=== PATIENT | male | born 1985 | race Caucasian/White ===

== ENCOUNTER 2021-02-04 07:26 | Emergency (ER) | payer OTHER ==
[2021-02-04 08:38] LABS: HEMOGLOBIN 15.6 gm/dl (14.0-17.5); RED BLOOD COUNT 4.97 M/UL (4.20-5.50); WHITE BLOOD COUNT 6.2 K/UL (4.5-11.0)
[2021-02-04 09:00] LABS: BUN/CREATININE RATIO 17 (0-10)
== END 2021-02-04 10:32 | disposition home or self-care (01) ==
LOC: ER1 07:26
PROVIDERS: Emergency Medicine
DX: R07.2 Precordial pain (principal); R42 Dizziness and giddiness; Z20.822 Contact with and (suspected) exposure to COVID-19
CPT/HCPCS: 0240U; 70450; 71045; 80053; 82550; 82553; 83874; 83880; 84484; 85025; 93005; 99285; J7030

== ENCOUNTER 2021-03-10 18:57 | Emergency (ER) | payer OTHER ==
[2021-03-10] MEDS ORDERED: LODINE CAP 300300 MG PO (20:29)
== END 2021-03-10 20:35 | disposition home or self-care (01) ==
LOC: ER1 18:57
DX: J32.9 Chronic sinusitis, unspecified (principal); I10 Essential (primary) hypertension; F17.290 Nicotine dependence, other tobacco product, uncomplicated
CPT/HCPCS: 99283

== ENCOUNTER 2021-04-27 00:47 | Emergency (ER) | payer OTHER ==
[~2021-04-27 00:47] MED LIST: LODINE CAP 300300 MG PO
[2021-04-27 02:13] LABS: RED BLOOD COUNT 5.06 M/UL (4.20-5.50); WHITE BLOOD COUNT 11.3 K/UL (4.5-11.0)
[2021-04-27 02:34] LABS: BUN/CREATININE RATIO 18 (0-10)
== END 2021-04-27 04:30 | disposition left against medical advice (07) ==
LOC: ER1 00:47
PROVIDERS: Emergency Medicine
DX: R07.89 Other chest pain (principal); I10 Essential (primary) hypertension; F17.200 Nicotine dependence, unspecified, uncomplicated
CPT/HCPCS: 71045; 80053; 82550; 82553; 83690; 83735; 83874; 84484; 85025; 85379; 93005; 96365; 99285; G0480; J7120

== ENCOUNTER 2021-05-27 12:34 | Emergency (ER) | payer OTHER ==
[2021-05-27 12:52] LABS: HEMOGLOBIN 14.5 gm/dl (14.0-17.5); RED BLOOD COUNT 4.6 M/UL (4.20-5.50); WHITE BLOOD COUNT 8.7 K/UL (4.5-11.0)
[2021-05-27 13:15] LABS: BUN/CREATININE RATIO 16 (0-10)
== END 2021-05-27 17:10 | disposition home or self-care (01) ==
LOC: ER1 12:34
PROVIDERS: Emergency Medicine
DX: R07.89 Other chest pain (principal); N28.9 Disorder of kidney and ureter, unspecified; I10 Essential (primary) hypertension; F17.290 Nicotine dependence, other tobacco product, uncomplicated; Z79.899 Other long term (current) drug therapy; Z20.822 Contact with and (suspected) exposure to COVID-19
CPT/HCPCS: 0240U; 71046; 80053; 82550; 82553; 83874; 84484; 85025; 93005; 99285

== ENCOUNTER 2021-07-04 15:22 | Emergency (ER) | payer OTHER ==
[2021-07-04 16:05] LABS: HEMOGLOBIN 14.3 gm/dl (14.0-17.5); RED BLOOD COUNT 4.7 M/UL (4.20-5.50); WHITE BLOOD COUNT 14.6 K/UL (4.5-11.0)
[2021-07-04 16:36] LABS: BUN/CREATININE RATIO 19 (0-10)
== END 2021-07-04 18:14 | disposition home or self-care (01) ==
LOC: ER1 15:22
PROVIDERS: Physician Assistant
DX: U07.1 COVID-19 (principal)
CPT/HCPCS: 71045; 80053; 82550; 82553; 83874; 84484; 85025; 93005; 99285; J1885; U0003